=== PATIENT | male | born 1985 | race Caucasian/White ===

== ENCOUNTER 2017-08-06 08:03 | Emergency (ER) | payer OTHER ==
[2017-08-06 09:06] LABS: HIV (1/2) Antibody/Antigen Non-Reactive (NonReactive); HIV 1/2 INDEX 0.22 S/CO (<1.00); Hep C IgG Ab Non-Reactive (NonReactive); Hep C Index 0.15 S/CO (0-0.79)
[2017-08-06 12:28] LABS: HBSAB Concentration 8.47 mIU/mL; Hep B Surf AB EQUIVOCAL (NonReactive)
== END 2017-08-06 09:15 | disposition home or self-care (01) ==
LOC: ERS 08:03
DX: S61.233A Puncture wound without foreign body of left middle finger without damage to nail, initial encounter (principal); W46.1XXA Contact with contaminated hypodermic needle, initial encounter
CPT/HCPCS: 36415; 86706; 86803; 87389; 99283